=== PATIENT | male | born 1980 | race African-American/Black ===

== ENCOUNTER 2018-10-09 16:34 | Emergency (ER) | payer SELFPAY ==
[~2018-10-09] VITALS: Ht 180.3 cm; Wt 88.0 kg
[~2018-10-09 16:34] MED LIST: PROM25TA10 PO
[2018-10-09 17:14] VITALS: BP 143/75
[2018-10-09] MEDS ORDERED: POLY10DR RIGHTEYE (17:49)
--- NOTE | 2018-10-09 17:49 | PHYS DOC ---
Past Medical History Past Medical History: No Pertinent History Past Surgical History: No Surgical History Alcohol Use: Occasionally Drug Use: None Adult General Chief Complaint Chief Complaint: EYE PROBLEMS HPI HPI Patient is a 38 year old AA male who presents to the emergency room with complaints of right eye redness, crusting, and tearing that started today. He denies any blurred vision, known injury, pain, or sensitivity to light. Patient denies any use of contact lenses. Patient currently denies any pain. Review of Systems Review of Systems Constitutional: Denies fever or chills [] Eyes: Denies change in visual acuity, or eye pain; see history of present illness HENT: Denies nasal congestion or sore throat [] Respiratory: Denies cough or shortness of breath [] Integument: Denies rash or skin lesions [] Neurologic: Denies headache, focal weakness or sensory changes [] Allergies Allergies Allergies Coded Allergies Type Severity Reaction Last Updated Verified No Known Drug Allergies 10/19/15 No Physical Exam Physical Exam Constitutional: Well developed, well nourished, no acute distress, non-toxic appearance. [] HENT: Normocephalic, atraumatic, bilateral external ears normal, oropharynx moist, no oral exudates, nose normal. [] Eyes: PERRLA, EOMI: left eye: conjunctiva normal, no discharge; right eye: Conjunctiva injected, watery discharge [] Neck: Normal range of motion, no stridor. [] Cardiovascular:Heart rate regular rhythm, no murmur [] Lungs & Thorax: Bilateral breath sounds clear to auscultation [] Skin: Warm, dry, no erythema, no rash. [] Extremities: No cyanosis, ROM intact, no edema. [] Neurologic: Alert and oriented X 3, normal motor function, normal sensory function, no focal deficits noted. [] Psychologic: Affect normal, judgement normal, mood normal. [] Current Patient Data Vital Signs Vital Signs Date Time Temp Pulse Resp B/P (MAP) Pulse Ox O2 Delivery O2 Flow Rate FiO2 10/09/18 17:14 98.4 106 16 143/75 (97) 97 Room Air 98.4 EKG EKG [] Radiology/Procedures Radiology/Procedures [] Course & Med Decision Making Course & Med Decision Making Pertinent Labs and Imaging studies reviewed. (See chart for details) [] Dragon Disclaimer Dragon Disclaimer This electronic medical record was generated, in whole or in part, using a voice recognition dictation system. Departure Departure Impression: Primary Impression: Conjunctivitis, acute, right eye Disposition: 01 HOME, SELF-CARE Condition: STABLE Referrals: NO PCP (PCP) Patient Instructions: Bacterial Conjunctivitis, [id number] Additional Instructions: Fill the prescription(s) and use as directed. Apply warm, moist washcloths to eyes needed for comfort. Recommend use of baby shampoo to wash eyelids. Follow- up with your primary care doctor in 1-2 days. Return to the emergency room if your symptoms worsen. Scripts Polymyxin B Sulf/Trimethoprim (POLYTRIM EYE DROPS) 10 Ml Drops 1 DROP RIGHTEYE Q6HRS for 5 Days, #10 ML 0 Refills Prov: SIN EMANUEL APRN 10/09/18 Problem Qualifiers Primary Impression: Conjunctivitis, acute, right eye Acute conjunctivitis type: unspecified Qualified Codes: H10.31 - Unspecified acute conjunctivitis, right eye SIN EMANUEL APRN Oct 09, 2018 17:49
== END 2018-10-09 17:56 | disposition home or self-care (01) ==
LOC: ER 16:34
DX: H10.31 Unspecified acute conjunctivitis, right eye (principal)
CPT/HCPCS: 99283